=== PATIENT | female | born 1995 | race Caucasian/White ===

== ENCOUNTER 2020-10-15 14:50 | Emergency (ER) | payer OTHER ==
[~2020-10-15] VITALS: Ht 157.5 cm; Wt 59.0 kg
[2020-10-15] MEDS ORDERED: XANAX 0.5 MG0.5 M1 PO (15:01)
[2020-10-15] MEDS ORDERED: ADDERALL 30 MG30 MG PO (15:01)
[2020-10-15 15:28] LABS: ABSOLUTE BASOPHILS 0.1 thou/uL (0.0-0.2); ABSOLUTE EOSINOPHILS 0.3 thou/uL (0.0-0.7); ABSOLUTE LYMPHOCYTES 1.7 thou/uL (0.8-5.3); ABSOLUTE MONOCYTES 0.3 thou/uL (0.0-1.2); ABSOLUTE NEUTROPHILS 6.5 thou/uL (1.6-8.1); BASOPHILS 0.8 %; EOSINOPHILS 3.1 %; HEMATOCRIT 39.1 % (37.0-47.0); HEMOGLOBIN 13.3 gm/dL (12.0-15.0); LYMPHOCYTES 19.4 %; MCH 31.8 pg (26.0-34.0); MCHC 34.2 g/dL (28.0-37.0); MCV 93.1 fL (80.0-100.0); MONOCYTES 3.3 %; MPV 7.1 fl. (7.2-11.1); NUCLEATED RBCS 0 /100WBC; PLATELET COUNT* 358 thou/uL (150-400); POLYS 73.4 %; RDW-CV 13.2 % (10.5-14.5); WBC 8.8 thou/uL (4.0-11.0)
[2020-10-15 15:39] LABS: CALCIUM 9.1 mg/dL (8.5-10.1); CREATININE 0.6 mg/dL (0.6-1.3); POTASSIUM 4.1 mmol/L (3.5-5.1)
[2020-10-15 15:43] LABS: ALBUMIN 3.3 g/dL (3.4-5.0); TOTAL BILIRUBIN 0.3 mg/dL (<0.1-1.0)
[2020-10-15] MEDS ORDERED: IBUPROFEN 800800 M1 PO (15:56)
[2020-10-15] MEDS ORDERED: PREDNISONE50 MG PO (15:56)
[2020-10-15] MEDS ORDERED: FLEXERIL PO (15:56)
[2020-10-15 16:11] VITALS: BP 112/65
== END 2020-10-15 16:12 | disposition home or self-care (01) ==
LOC: M.ERS 14:50
PROVIDERS: Emergency Medicine Emergency Medical Services
DX: M54.10 Radiculopathy, site unspecified (principal); Z20.828 Contact with and (suspected) exposure to other viral communicable diseases; F17.210 Nicotine dependence, cigarettes, uncomplicated